=== PATIENT | male | born 1960 | race Caucasian/White ===

== ENCOUNTER 2023-04-27 11:34 | Observation (INO) | payer BC ==
[2023-04-27] VITALS (10 sets, daily range): BP systolic 89–129; BP diastolic 59–103
[~2023-04-27] VITALS: Ht 172.2 cm; Wt 95.0 kg
[2023-04-27 11:59] LABS: BASOPHILS # (AUTO) 0.1 10^3/uL (0.0-0.1); BASOPHILS % (AUTO) 1 % (0-10); EOSINOPHILS # (AUTO) 0.1 10^3/uL (0.0-0.3); EOSINOPHILS % (AUTO) 1 % (0-10); HEMATOCRIT 49 % (40-54); HEMOGLOBIN 16.4 g/dL (13.3-17.7); LYMPHOCYTES % (AUTO) 36 % (12-44); MEAN CORPUSCULAR HEMOGLOBIN 30 pg (25-34); MEAN CORPUSCULAR HGB CONC 34 g/dL (32-36); MEAN CORPUSCULAR VOLUME 88 fL (80-99); MEAN PLATELET VOLUME 10.9 fL (9.0-12.2); MONOCYTES # (AUTO) 0.6 10^3/uL (0.0-1.0); MONOCYTES % (AUTO) 7 % (0-12); NEUTROPHILS # (AUTO) 4.6 10^3/uL (1.8-7.8); NEUTROPHILS % (AUTO) 55 % (42-75); PLATELET COUNT 253 10^3/uL (130-400); WHITE BLOOD COUNT 8.4 10^3/uL (4.3-11.0)
[2023-04-27] MEDS ORDERED: NS IV 1000 ML 1,000 ML IV SCH (12:00)
--- NOTE | 2023-04-27 12:01 | ED Cardiac General ---
History of Present Illness General Chief Complaint: Cardiac/General Problems Stated Complaint: AFIB | Nursing Triage Note: ARRIVED VIA AMB FROM DR SMITH OFFICE IN A NEW ONSET OF AFIB. PT STATES HIS WATCH ALERTED HIM TO AFIB YESTERDAY. ONLY SX IS DIZZINESS. Source: patient Exam Limitations: no limitations History of Present Illness Date Seen by Provider: April 27, 2023 Time Seen by Provider: 11:37 Initial Comments 62-year-old male presents to the ER with reports of elevated heart rate and dizziness starting yesterday. He reports that his smart watch told him he was in atrial fibrillation with a high heart rate. He denies history of atrial fibrillation. He reports he called his doctor about this yesterday and he was seen in the clinic today by the nurse practitioner, the nurse practitioner spoke with the physician who told patient to come to the ER. He reports intermittent dizziness, states that it mostly occurs when he stands up or is walking. States he is not dizzy when he is lying or sitting. He denies blurred vision, palpitations, chest pain, shortness of air, abdominal pain, nausea, vomiting, diarrhea. Allergies and Home Medications Allergies Coded Allergies: No Known Drug Allergies (Unverified , 04/27/23) Patient Home Medication List Home Medication List Reviewed: Yes Review of Systems Review of Systems Constitutional: see HPI Past Zmatzsx-Swttzs-Mptsfm Hx Patient Social History Tobacco Use?: No Substance use?: No Alcohol Use?: Yes Alcohol Frequency: Rarely Physical Exam Vital Signs Vital Signs - First Documented 04/27/23 11:39 Temp 35.4 Pulse 106 Resp 16 B/P (MAP) 129/83 (98) Pulse Ox 96 O2 Delivery Room Air Capillary Refill : Less Than 3 Seconds Height, Weight, BMI Height: '" Weight: lbs. oz. kg; 33.00 BMI Method: General Appearance: No Apparent Distress, WD/WN Neck: Non Tender, Supple Respiratory: Lungs Clear, Normal Breath Sounds, No Accessory Muscle Use, No Respiratory Distress Cardiovascular: Irregularly Irregular Extremity: Normal Inspection, Normal Range of Motion Neurologic/Psychiatric: Alert, Normal Mood/Affect Skin: Normal Color, Warm/Dry Progress/Results/Core Measures Results/Orders Lab Results Laboratory Tests Test 04/27/23 11:43 Range/Units White Blood Count 8.4 4.3-11.0 10^3/uL Red Blood Count 5.52 4.30-5.52 10^6/uL Hemoglobin 16.4 13.3-17.7 g/dL Hematocrit 49 40-54 % Mean Corpuscular Volume 88 80-99 fL Mean Corpuscular Hemoglobin 30 25-34 pg Mean Corpuscular Hemoglobin Concent 34 32-36 g/dL Red Cell Distribution Width 13.0 10.0-14.5 % Platelet Count 253 130-400 10^3/uL Mean Platelet Volume 10.9 9.0-12.2 fL Immature Granulocyte % (Auto) 0 % Neutrophils (%) (Auto) 55 42-75 % Lymphocytes (%) (Auto) 36 12-44 % Monocytes (%) (Auto) 7 0-12 % Eosinophils (%) (Auto) 1 0-10 % Basophils (%) (Auto) 1 0-10 % Neutrophils # (Auto) 4.6 1.8-7.8 10^3/uL Lymphocytes # (Auto) 3.0 1.0-4.0 10^3/uL Monocytes # (Auto) 0.6 0.0-1.0 10^3/uL Eosinophils # (Auto) 0.1 0.0-0.3 10^3/uL Basophils # (Auto) 0.1 0.0-0.1 10^3/uL Immature Granulocyte # (Auto) 0.0 0.0-0.1 10^3/uL Prothrombin Time 13.4 12.2-14.7 SEC INR Comment 1.0 0.8-1.4 Activated Partial Thromboplast Time 30 24-35 SEC Sodium Level 140 135-145 MMOL/L Potassium Level 4.1 3.6-5.0 MMOL/L Chloride Level 105 98-107 MMOL/L Carbon Dioxide Level 23 21-32 MMOL/L Anion Gap 12 5-14 MMOL/L Blood Urea Nitrogen 22 H 7-18 MG/DL Creatinine 1.10 0.60-1.30 MG/DL Estimat Glomerular Filtration Rate 76 BUN/Creatinine Ratio 20 Glucose Level 91 70-105 MG/DL Calcium Level 9.3 8.5-10.1 MG/DL Corrected Calcium 8.9 8.5-10.1 MG/DL Magnesium Level 2.2 1.6-2.4 MG/DL Total Bilirubin 0.7 0.1-1.0 MG/DL Aspartate Amino Transf (AST/SGOT) 30 5-34 U/L Alanine Aminotransferase (ALT/SGPT) 34 0-55 U/L Alkaline Phosphatase 69 40-136 U/L Troponin I < 0.028 <0.028 NG/ML B-Type Natriuretic Peptide 424.9 H <100.0 PG/ML Total Protein 7.9 6.4-8.2 GM/DL Albumin 4.5 3.2-4.5 GM/DL My Orders Orders - INDER BATISTA APRN Cbc With Automated Diff (04/27/23 11:54) Magnesium (04/27/23 11:54) Chest 1 View, Ap/Pa Only (04/27/23 11:54) Comprehensive Metabolic Panel (04/27/23 11:54) Ed Iv/Invasive Line Start (04/27/23 11:54) Ns Iv 1000 Ml (Sodium Chloride 0.9%) (04/27/23 12:00) Apixaban Tablet (Eliquis Tablet) (04/27/23 13:00) Troponin I Tyler (04/27/23 12:58) Bnp Tyler (04/27/23 12:58) Protime With Inr (04/27/23 12:58) Partial Thromboplastin Time (04/27/23 12:58) Ed Admission (Communication) (04/27/23 13:00) Digoxin Tablet (Lanoxin Tablet) (04/27/23 13:30) Medications Given in ED Current Medications Medications Dose Ordered Sig/Rodríguez Route Start Time Stop Time Status Last Admin Dose Admin Apixaban 5 mg ONCE ONCE PO 04/27/23 13:00 04/27/23 13:01 DC 04/27/23 13:34 5 MG Digoxin 0.25 mg ONCE ONCE PO 04/27/23 13:30 04/27/23 13:31 DC 04/27/23 13:38 0.25 MG Vital Signs/I&O 04/27/23 11:39 Temp 35.4 Pulse 106 Resp 16 B/P (MAP) 129/83 (98) Pulse Ox 96 O2 Delivery Room Air Blood Pressure Mean: 98 Progress Progress Note : Progress Note Patient seen and evaluated, resting comfortably in bed, no acute distress. Based on exam and symptoms, work-up initiated including CBC, CMP, magnesium, chest x-ray. IV fluids ordered for hypotension. Labs and x-ray reviewed. CBC grossly normal, CMP grossly normal, BUN slightly elevated 22. Magnesium normal. Chest x-ray shows cardiomegaly with no significant pulmonary vascular congestion. Lungs are clear. I called and spoke with Dr. Bull, cardiology, regarding patient. He recommends admission with 5 mg of Eliquis now and twice daily, digoxin 0.25 mg now and daily, and an echocardiogram. I spoke with Dr. Montana, hospitalist, for admission. She agrees to admit to cardiac stepdown for observation. She would like me to add coags, troponin, and BNP. She will place admission orders. Initial ECG Impression Date: April 27, 2023 Initial ECG Impression Time: 11:42 Initial ECG Rate: 97 Initial ECG Rhythm: A Fib/Flutter Initial ECG Intervals: QRS (Elevated 138) Initial ECG Impression: Atrial Fibrillation Initial ECG Comparisson: No Previous ECG Available Comment Atrial fibrillation right bundle branch block, T wave inversion in lead III, no significant Q waves or ST elevation. Diagnostic Imaging Diagonstic Imaging: Xray Plain Films/CT/US/NM/MRI: chest Comments [facility], [facility]. [place], [place] NAME: VIPUL JACK [facility] REC#: [id number] PT STATUS: REG ER : 1960 PHYSICIAN: INDER BATISTA APRN ADMIT DATE: 04/27/23/ER Draft Date of Exam:04/27/23 CHEST 1 VIEW, AP/PA ONLY CLINICAL INDICATION: Patient with new onset of A. fib. Patient with dizziness. EXAM: Portable chest x-ray upright view. COMPARISON: None. FINDINGS: Lungs/pleura: There is elevation of the left hemidiaphragm. Lungs are clear. There is no pneumothorax. There is no pleural effusion. Mediastinum: Unremarkable. Pulmonary vasculature: Unremarkable. Heart: There is cardiomegaly. Bones/extrathoracic soft tissue: Unremarkable. IMPRESSION: 1: There is cardiomegaly with no significant pulmonary vascular congestion. 2: Lungs are clear. There is elevation of the left hemidiaphragm. Dictated on workstation # [id number] Dict: 04/27/23 1211 Trans: 04/27/23 1219 AS6 [id number] Interpreted by: AUSTIN LAGUNAS MD Electronically signed by: Departure Communication (Admissions) Time/Spoke to Admitting Phy: 12:55 Dr. Neely, hospitalist, see progress note. Time/Spoke to Consulting Phy: 12:48 Dr. Bull, cardiology, see progress note. Impression Primary Impression: Atrial fibrillation Qualified Codes: I48.91 - Unspecified atrial fibrillation Additional Impression: Cardiomegaly Disposition: ADMITTED INPATIENT Condition: Stable Admissions Decision to Admit Reason: Admit from ER (General) Decision to Admit/Date: April 27, 2023 Time/Decision to Admit Time: 12:50 Departure-Patient Inst. Referrals: PARRISH MUSE DO (PCP/Family) Primary Care Physician Copy Copies To 1: PARRISH MUSE BRITTANY R APRN April 27, 2023 12:01
[2023-04-27 12:04] LABS: ALBUMIN 4.5 GM/DL (3.2-4.5); POTASSIUM 4.1 MMOL/L (3.6-5.0)
[2023-04-27 12:05] LABS: CALCIUM 9.3 MG/DL (8.5-10.1)
[2023-04-27 12:07] LABS: TOTAL PROTEIN 7.9 GM/DL (6.4-8.2)
[2023-04-27 12:08] LABS: BILIRUBIN,TOTAL 0.7 MG/DL (0.1-1.0)
[2023-04-27 12:10] LABS: CREATININE SERUM 1.1 MG/DL (0.60-1.30)
[2023-04-27 12:13] LABS: MAGNESIUM 2.2 MG/DL (1.6-2.4)
--- NOTE | 2023-04-27 12:19 | Diagnostic Imaging Report ---
CLINICAL INDICATION: Patient with new onset of A. fib. Patient with dizziness. EXAM: Portable chest x-ray upright view. COMPARISON: None. FINDINGS: Lungs/pleura: There is elevation of the left hemidiaphragm. Lungs are clear. There is no pneumothorax. There is no pleural effusion. Mediastinum: Unremarkable. Pulmonary vasculature: Unremarkable. Heart: There is cardiomegaly. Bones/extrathoracic soft tissue: Unremarkable. IMPRESSION: 1: There is cardiomegaly with no significant pulmonary vascular congestion. 2: Lungs are clear. There is elevation of the left hemidiaphragm. Dictated by: Dictated on workstation # [id number]
[2023-04-27] MEDS ORDERED: APIXABAN 5 MG (ELIQUIS) TABLET PO ONE (13:00)
--- NOTE | 2023-04-27 13:01 | History & Physical ---
History of Present Illness HPI/Chief Complaint Chief complaint: New onset A-fib with rate control but hypotension HPI: This is a 62-year-old male clinic patient of Dr. Ryan who has no past medical history of heart problems who presented to the ER with weakness and dizziness new onset atrial fibrillation but rate controlled. Significant hypotension required IV fluids. No evidence of any sepsis. To note when asked if he has ever had a sleep study he reports that was arranged long ago but it was too difficult to obtain and canceled it and never went back. I did recommend a sleep study due to connection with obstructive sleep apnea and atrial fibrillation. Cardiology has been consulted. Source: patient, family, RN/MD Exam Limitations: no limitations Date Seen 04/27/23 Time Seen by a Provider: 12:00 Attending Physician Maddie Ryan DO PCP Admitting Physician: Attending Physician: Referring Physician Date of Admission Home Medications & Allergies Home Medications Reviewed patient Home Medication Reconciliation performed by pharmacy medication reconciliations perinatal technician and/or nursing. Patients Allergies have been reviewed. Allergies Allergies Coded Allergies No Known Drug Allergies (Unverified04/27/23) Past Kjwqcnl-Dxraak-Kbxoss Hx Past Med/Social Hx: Reviewed Nursing Past Med/Soc Hx, Reviewed and Corrections made Patient Social History Marrital Status: Employed/Student: employed Alcohol Use: Denies Use Smoking Status: Never a Smoker Review of Systems Constitutional: see HPI, dizziness, malaise, weakness Physical Exam Physical Exam Vital Signs Vital Signs - First Documented 04/27/23 04/27/23 04/27/23 11:39 16:16 16:21 Temp 35.4 Pulse 106 Resp 16 B/P (MAP) 129/83 (98) Pulse Ox 96 O2 Delivery Room Air O2 Flow Rate 0.00 FiO2 21 Capillary Refill : Less Than 3 Seconds Height, Weight, BMI Height: '" Weight: lbs. oz. kg; 33.00 BMI Method: General Appearance: No Apparent Distress, WD/WN Neck: Non Tender, Supple Respiratory: Lungs Clear, Normal Breath Sounds, No Accessory Muscle Use, No Respiratory Distress Cardiovascular: Irregularly Irregular Extremity: Normal Inspection, Normal Range of Motion Neurologic/Psychiatric: Alert, Normal Mood/Affect Skin: Normal Color, Warm/Dry Results Results/Procedures Labs Laboratory Tests 04/27/23 11:43 Patient resulted labs reviewed. Assessment/Plan Admission Diagnosis Assessment: New onset atrial fibrillation rate controlled Suspected AUTUMN Hypotension requiring IV fluids Plan: Eliquis Digoxin Echocardiogram Cardiology consult appreciated Admission Status: Observation MARILYN YO DO April 27, 2023 13:01
[2023-04-27 13:09] LABS: PROTHROMBIN TIME PATIENT 13.4 SEC (12.2-14.7)
[2023-04-27] MEDS ORDERED: DIGOXIN 0.25 MG (LANOXIN) TAB PO ONE (13:30)
--- NOTE | 2023-04-27 14:20 | Consultation-Cardiology ---
HPI-Cardiology Cardiology Consultation: Date of Consultation 04/27/23 Time Seen by a Provider: 14:20 Date of Admission 04-27-23 Attending Physician Maddie Ryan DO Admitting Physician Admitting Physician: Attending Physician: Consulting Physician Fabiola Bull MD HPI: Chief Complaint: Newly dx a-fib Mr. Jack is a 62 yr old male being admitted to 507 from the ED with newly dx a-fib. He has been seen in the ED at this time. He reports yesterday morning he woke up from sleep at his usual time and felt lightheaded and dizzy. He reports it did not persist for long and he went to work without any further problems. He reports he got home from work and laid down when his Apple Watch alerted him that he was in a-fib (new finding). He states he felt dizzy at that time and called Dr. Ryan's office this morning for an appt. He states he saw her office this morning and they sent him to the ED. He denies any palpitations, CP, syncope, near syncope or LE swelling. He denies any further dizziness today. He denies taking any medications at home. His spouse is at the bedside and reports he has periods of apnea when sleeping and significant snoring. She reports she believes he has sleep apnea. Review of Systems-Cardiology Review of Systems Constitutional: No chills, No fever; lightheadedness Eyes: No vision change Ears/Nose/Throat: No epistaxis, No recent hearing loss Respiratory: As described under HPI Cardiovascular: As described under HPI Gastrointestinal: No constipation, No diarrhea, No nausea, No vomiting Genitourinary: No dysuria, No hematuria Musculoskeletal: no symptoms reported Skin: No rash on exposed areas, No ulcerations on exposed areas Psychiatric/Neurological: No anxiety, No depression, No seizure, No focal weakness, No syncope Hematologic: No bleeding abnormalities ZSZ-Neffbr-Jjmpsq Hx Patient Social History Have you traveled recently?: No Alcohol Use?: Yes Past Medical History PMH As described under Assessment. Family Medical History Family Medical History: He reports he has a sister who had a CVA at age 45. Otherwise, no reported family CAD. Allergies and Home Medications Allergies Coded Allergies: No Known Drug Allergies (Unverified , 04/27/23) Physical Exam-Cardiology Physical Exam Vital Signs/I&O 04/27/23 04/28/23 04/28/23 04/28/23 23:52 01:00 03:33 04:06 Temp 36.5 36.4 Pulse 73 70 68 Resp 12 16 B/P (MAP) 90/65 (73) 81/69 (73) 85/57 (66) Pulse Ox 99 99 O2 Delivery Room Air Room Air 04/28/23 04/28/23 07:12 08:00 Temp 36.3 Pulse 76 74 Resp 16 B/P (MAP) 106/72 (83) Pulse Ox 97 O2 Delivery Room Air 04/28/23 00:00 Intake Total 2400 ml Output Total 650 ml Balance 1750 ml Capillary Refill : Less Than 3 Seconds Constitutional: AAO x 3, well-developed, well-nourished HEENT: PERRL, hearing is well preserved, oral hygience is good Neck: No carotid bruit; carotid pulses are 2 + bilaterally Respiratory: No accessory muscle use, No respiratory distress; chest expansion is symmetric, chest is bilaterally symmetric, lungs clear to auscultation Cardiovascular: irregularly irregular; No JVD; S1 and S2 Gastrointestinal: No tender; soft, round; No guarding; audible bowel sounds Extremities: no lower extremity edema bilateral Neurologic/Psychiatric: grossly intact (moves all extremities) Skin: No rash on exposed areas, No ulcerations on exposed areas Data Review Labs Laboratory Tests 04/27/23 11:43: White Blood Count 8.4, Red Blood Count 5.52, Hemoglobin 16.4, Hematocrit 49, Mean Corpuscular Volume 88, Mean Corpuscular Hemoglobin 30, Mean Corpuscular Hemoglobin Concent 34, Red Cell Distribution Width 13.0, Platelet Count 253, Mean Platelet Volume 10.9, Immature Granulocyte % (Auto) 0, Neutrophils (%) (Auto) 55, Lymphocytes (%) (Auto) 36, Monocytes (%) (Auto) 7, Eosinophils (%) (Auto) 1, Basophils (%) (Auto) 1, Neutrophils # (Auto) 4.6, Lymphocytes # (Auto) 3.0, Monocytes # (Auto) 0.6, Eosinophils # (Auto) 0.1, Basophils # (Auto) 0.1, Immature Granulocyte # (Auto) 0.0, Prothrombin Time 13.4, INR Comment 1.0, Activated Partial Thromboplast Time 30, Sodium Level 140, Potassium Level 4.1, Chloride Level 105, Carbon Dioxide Level 23, Anion Gap 12, Blood Urea Nitrogen 22H, Creatinine 1.10, Estimat Glomerular Filtration Rate 76, BUN/Creatinine Ratio 20, Glucose Level 91, Calcium Level 9.3, Corrected Calcium 8.9, Magnesium Level 2.2, Total Bilirubin 0.7, Aspartate Amino Transf (AST/SGOT) 30, Alanine Aminotransferase (ALT/SGPT) 34, Alkaline Phosphatase 69, Troponin I < 0.028, B- Type Natriuretic Peptide 424.9H, Total Protein 7.9, Albumin 4.5 04/27/23 15:04: Thyroid Stimulating Hormone (TSH) 3.08 04/28/23 04:37: White Blood Count 6.6, Red Blood Count 4.67, Hemoglobin 13.9, Hematocrit 41, Mean Corpuscular Volume 88, Mean Corpuscular Hemoglobin 30, Mean Corpuscular Hemoglobin Concent 34, Red Cell Distribution Width 13.1, Platelet Count 219, Mean Platelet Volume 11.4, Immature Granulocyte % (Auto) 0, Neutrophils (%) (Auto) 51, Lymphocytes (%) (Auto) 39, Monocytes (%) (Auto) 7, Eosinophils (%) (Auto) 2, Basophils (%) (Auto) 1, Neutrophils # (Auto) 3.4, Lymphocytes # (Auto) 2.5, Monocytes # (Auto) 0.5, Eosinophils # (Auto) 0.2, Basophils # (Auto) 0.0, Immature Granulocyte # (Auto) 0.0, Sodium Level 139, Potassium Level 4.1, Chloride Level 110H, Carbon Dioxide Level 24, Anion Gap 5, Blood Urea Nitrogen 19H, Creatinine 1.08, Estimat Glomerular Filtration Rate 78, BUN/Creatinine Ratio 18, Glucose Level 95, Calcium Level 8.3L, Corrected Calcium 8.7, Total Bilirubin 0.4, Aspartate Amino Transf (AST/SGOT) 21, Alanine Aminotransferase (ALT/SGPT) 25, Alkaline Phosphatase 48, Total Protein 6.0L, Albumin 3.5 Radiology NAME: VIPUL JACK [facility] REC#: [id number] PT STATUS: REG ER : 1960 PHYSICIAN: INDER BATISTA APRN ADMIT DATE: 04/27/23/ER Draft Date of Exam:04/27/23 CHEST 1 VIEW, AP/PA ONLY CLINICAL INDICATION: Patient with new onset of A. fib. Patient with dizziness. EXAM: Portable chest x-ray upright view. COMPARISON: None. FINDINGS: Lungs/pleura: There is elevation of the left hemidiaphragm. Lungs are clear. There is no pneumothorax. There is no pleural effusion. Mediastinum: Unremarkable. Pulmonary vasculature: Unremarkable. Heart: There is cardiomegaly. Bones/extrathoracic soft tissue: Unremarkable. IMPRESSION: 1: There is cardiomegaly with no significant pulmonary vascular congestion. 2: Lungs are clear. There is elevation of the left hemidiaphragm. Dictated on workstation # [id number] Dict: 04/27/23 1211 Trans: 04/27/23 1219 AS6 [id number] Interpreted by: AUSTIN LAGUNAS MD Electronically signed by: ECG Impression ECG Initial ECG Rhythm: A Fib/Flutter A/P-Cardiology Assessment/Admission Diagnosis Newly dx a-fib/flutter - EKG at [facility] on 04-27-23 - start OAC with Eliquis for stroke prophylaxis Suspected sleep apnea - advise out pt sleep studies Discussion and Recomendations Newly dx a-fib/flutter - HR ranging 80's - 140's - start Cardizem CD 120mg daily - start Eliquis 5mg BID - advise echocardiogram to eval structure and function Advise out pt sleep studies to eval for sleep apnea Monitor lab Replace electrolytes as indicated Further recs will be based on his hospital course We would like to thank medical services for this consult CHAPO MATOS April 27, 2023 14:20
[2023-04-27] MEDS ORDERED: dilTIAZem120 MG (CARDIZEM CD) CAP PO NR (15:10)
[2023-04-27] MEDS ORDERED: diphenhydrAMINE 50 MG/ML INJ (BENADRYL) IVP PRN (15:45)
[2023-04-27] MEDS ORDERED: polyethylene glycoL POWDER 17 GM (MIRALAX) PACK PO PRN (15:45)
[2023-04-27] MEDS ORDERED: ACETAMINOPHEN 325 MG TABLET PO PRN (15:45)
[2023-04-27] MEDS ORDERED: morphine INJ 4 MG/ML 1 ML (VIAL/SYRINGE) IV PRN (15:45)
[2023-04-27] MEDS ORDERED: MILK OF MAGNESIA 400 MG/5 ML 30 ML UDC PO PRN (15:45)
[2023-04-27] MEDS ORDERED: ONDANSETRON 4 MG (ZOFRAN) ORAL DISSOLVE TAB PO PRN (15:45)
[2023-04-27] MEDS ORDERED: BISACODYL 10 MG SUPP (DULCOLAX) PR PRN (15:45)
[2023-04-27] MEDS ORDERED: CALCIUM CARBONATE 500 MG (TUMS) TAB.CHEW PO PRN (15:45)
[2023-04-27] MEDS ORDERED: ONDANSETRON 4 MG/2 ML (SDV) Z0FRAN IV PRN (15:45)
[2023-04-27] MEDS ORDERED: LACTULOSE SYRUP 10GM/15ML (ENULOSE) 30ML UDC PO PRN (15:45)
[2023-04-27] MEDS ORDERED: MELATONIN 3 MG TABLET PO PRN (15:45)
[2023-04-27] MEDS ORDERED: ANTACID SUSP 30 ML UDC (MYLANTA) PO PRN (15:45)
[2023-04-27] MEDS ORDERED: diphenhydrAMINE 25 MG TAB (BENADRYL) PO PRN (15:45)
[2023-04-27] MEDS ORDERED: NS IV 1000 ML 1,000 ML ONE (15:53)
[2023-04-27] MEDS: NS IV 1000 ML 1,000 ML IV SCH ×2 (16:01→23:54)
[2023-04-27] MEDS ORDERED: RT-ALBUTEROL SULF 2.5 MG/3 ML PRE-MIX VIAL INH PRN (16:30)
[2023-04-27] MEDS ORDERED: DIGOXIN 0.25 MG/ML (LANOXIN) 2 ML AMP IV ONE (19:00)
--- NOTE | 2023-04-27 19:01 | Consultation-Cardiology ---
HPI-Cardiology Cardiology Consultation: Date of Consultation 04/27/23 Time Seen by a Provider: 18:40 Date of Admission Attending Physician Maddie Ryan DO Admitting Physician Admitting Physician: Diane Neely DO Attending Physician: Diane Neely DO Consulting Physician SPENCER MOHAMUD MD, MA, FACP, FACC, [facility] [place], CCDS Physician requesting consult: Dr Neely HPI: Chief Complaint: Reason for Card consult: Newly dx a-fib Mr. Mcpherson is a 62 yr old male being admitted to [facility] from the ED with newly dx a-fib. He has been seen in the ED at this time. He reports yesterday morning he woke up from sleep at his usual time and felt lightheaded and dizzy. He reports it did not persist for long and he went to work without any further problems. He reports he got home from work and laid down when his Apple Watch alerted him that he was in a-fib (new finding). He states he felt dizzy at that time and called Dr. Ryan's office this morning for an appt. He states he saw her office this morning and they sent him to the ED. He denies any palpitations, CP, syncope, near syncope or LE swelling. He denies any further dizziness today. He denies taking any medications at home. His spouse is at the bedside and reports he has periods of apnea when sleeping and significant snoring. She reports she believes he has sleep apnea. Review of Systems-Cardiology Review of Systems Constitutional: No chills, No fever; lightheadedness Eyes: No vision change Ears/Nose/Throat: No epistaxis, No recent hearing loss Respiratory: As described under HPI Cardiovascular: As described under HPI Gastrointestinal: No constipation, No diarrhea, No nausea, No vomiting Genitourinary: No dysuria, No hematuria Musculoskeletal: no symptoms reported Skin: No rash on exposed areas, No ulcerations on exposed areas Psychiatric/Neurological: No anxiety, No depression, No seizure, No focal weakness, No syncope Hematologic: No bleeding abnormalities CAD-Ymmlvl-Hpxxce Hx Patient Social History Smoking Status: Never a Smoker Have you traveled recently?: No Alcohol Use?: Yes Pt feels they are or have been: No Past Medical History PMH As described under Assessment. Family Medical History Family Medical History: He reports he has a sister who had a CVA at age 45. Otherwise, no reported family CAD. Allergies and Home Medications Allergies Coded Allergies: No Known Drug Allergies (Unverified , 04/27/23) Patient Home Medication List Home Medication List Reviewed: Yes Physical Exam-Cardiology Physical Exam Vital Signs/I&O 04/27/23 04/27/23 04/27/23 04/27/23 11:39 15:28 15:30 15:45 Temp 35.4 Pulse 106 111 118 94 Resp 16 14 12 12 B/P (MAP) 129/83 (98) 108/84 124/103 (110) 103/87 (92) Pulse Ox 96 98 98 98 O2 Delivery Room Air Room Air Room Air Room Air 04/27/23 04/27/23 04/27/23 04/27/23 15:45 15:51 16:00 16:15 Pulse 133 141 134 Resp 28 11 B/P (MAP) 115/95 (102) 124/102 (109) Pulse Ox 96 98 O2 Delivery Room Air Room Air Room Air 04/27/23 04/27/23 04/27/23 04/27/23 16:16 16:21 16:30 16:45 Temp 35.4 Pulse 106 126 128 Resp 12 9 B/P (MAP) 109/98 (102) 90/76 (81) Pulse Ox 96 96 100 96 O2 Delivery Room Air Room Air Room Air O2 Flow Rate 0.00 FiO2 21 04/27/23 17:00 Pulse 129 Resp 26 B/P (MAP) 89/59 (69) Pulse Ox 97 O2 Delivery Room Air Capillary Refill : Less Than 3 Seconds Constitutional: AAO x 3, well-developed, well-nourished HEENT: PERRL, hearing is well preserved, oral hygience is good Neck: No carotid bruit; carotid pulses are 2 + bilaterally Respiratory: No accessory muscle use, No respiratory distress; chest expansion is symmetric, chest is bilaterally symmetric, lungs clear to auscultation Cardiovascular: irregularly irregular; No JVD; S1 and S2 Gastrointestinal: No tender; soft, round; No guarding; audible bowel sounds Extremities: no lower extremity edema bilateral Neurologic/Psychiatric: grossly intact (moves all extremities) Skin: No rash on exposed areas, No ulcerations on exposed areas Data Review Labs Laboratory Tests 04/27/23 11:43: White Blood Count 8.4, Red Blood Count 5.52, Hemoglobin 16.4, Hematocrit 49, Mean Corpuscular Volume 88, Mean Corpuscular Hemoglobin 30, Mean Corpuscular Hemoglobin Concent 34, Red Cell Distribution Width 13.0, Platelet Count 253, Mean Platelet Volume 10.9, Immature Granulocyte % (Auto) 0, Neutrophils (%) (Auto) 55, Lymphocytes (%) (Auto) 36, Monocytes (%) (Auto) 7, Eosinophils (%) (Auto) 1, Basophils (%) (Auto) 1, Neutrophils # (Auto) 4.6, Lymphocytes # (Auto) 3.0, Monocytes # (Auto) 0.6, Eosinophils # (Auto) 0.1, Basophils # (Auto) 0.1, Immature Granulocyte # (Auto) 0.0, Prothrombin Time 13.4, INR Comment 1.0, Activated Partial Thromboplast Time 30, Sodium Level 140, Potassium Level 4.1, Chloride Level 105, Carbon Dioxide Level 23, Anion Gap 12, Blood Urea Nitrogen 22H, Creatinine 1.10, Estimat Glomerular Filtration Rate 76, BUN/Creatinine Ratio 20, Glucose Level 91, Calcium Level 9.3, Corrected Calcium 8.9, Magnesium Level 2.2, Total Bilirubin 0.7, Aspartate Amino Transf (AST/SGOT) 30, Alanine Aminotransferase (ALT/SGPT) 34, Alkaline Phosphatase 69, Troponin I < 0.028, B- Type Natriuretic Peptide 424.9H, Total Protein 7.9, Albumin 4.5 04/27/23 15:04: Thyroid Stimulating Hormone (TSH) 3.08 A/P-Cardiology Assessment/Admission Diagnosis Newly dx a-fib/flutter - EKG at [facility] on 04-27-23 - start OAC with Eliquis for stroke prophylaxis Suspected sleep apnea - advise out pt sleep studies Discussion and Recomendations Newly dx a-fib/flutter - HR ranging 80's - 140's - dilt and dig for vent rate control - start Eliquis 5mg BID - advise echocardiogram to eval structure and function Advise out pt sleep studies to eval for sleep apnea Monitor lab Replace electrolytes as indicated Further recs will be based on his hospital course We would like to thank Medical services for this consult SPENCER MOHAMUD MD [facility] CCDS April 27, 2023 19:01
[2023-04-27] MEDS: DOCUSATE SODIUM 100 MG (COLACE) CAP PO SCH (20:04)
[2023-04-27] MEDS: SENNOSIDES 8.6 MG (SENOKOT) TAB PO SCH (20:04)
[2023-04-27] MEDS: APIXABAN 5 MG (ELIQUIS) TABLET PO SCH (20:04)
[2023-04-28] VITALS (8 sets, daily range): BP systolic 81–109; BP diastolic 57–83
[2023-04-28 05:08] LABS: BASOPHILS % (AUTO) 1 % (0-10); EOSINOPHILS # (AUTO) 0.2 10^3/uL (0.0-0.3); EOSINOPHILS % (AUTO) 2 % (0-10); HEMATOCRIT 41 % (40-54); HEMOGLOBIN 13.9 g/dL (13.3-17.7); LYMPHOCYTES # (AUTO) 2.5 10^3/uL (1.0-4.0); LYMPHOCYTES % (AUTO) 39 % (12-44); MEAN CORPUSCULAR HEMOGLOBIN 30 pg (25-34); MEAN CORPUSCULAR HGB CONC 34 g/dL (32-36); MEAN CORPUSCULAR VOLUME 88 fL (80-99); MEAN PLATELET VOLUME 11.4 fL (9.0-12.2); MONOCYTES # (AUTO) 0.5 10^3/uL (0.0-1.0); MONOCYTES % (AUTO) 7 % (0-12); NEUTROPHILS # (AUTO) 3.4 10^3/uL (1.8-7.8); NEUTROPHILS % (AUTO) 51 % (42-75); PLATELET COUNT 219 10^3/uL (130-400); WHITE BLOOD COUNT 6.6 10^3/uL (4.3-11.0)
[2023-04-28 05:25] LABS: ALBUMIN 3.5 GM/DL (3.2-4.5); POTASSIUM 4.1 MMOL/L (3.6-5.0)
[2023-04-28 05:27] LABS: CALCIUM 8.3 MG/DL (8.5-10.1)
[2023-04-28 05:29] LABS: BILIRUBIN,TOTAL 0.4 MG/DL (0.1-1.0)
[2023-04-28 05:31] LABS: CREATININE SERUM 1.08 MG/DL (0.60-1.30)
[2023-04-28] MEDS: NS IV 1000 ML 1,000 ML IV SCH (07:50)
[2023-04-28] MEDS: APIXABAN 5 MG (ELIQUIS) TABLET PO SCH (08:33)
[2023-04-28] MEDS: SENNOSIDES 8.6 MG (SENOKOT) TAB PO SCH (08:34)
[2023-04-28] MEDS: DOCUSATE SODIUM 100 MG (COLACE) CAP PO SCH (08:34)
[2023-04-28] MEDS ORDERED: dilTIAZem120 MG (CARDIZEM CD) CAP PO SCH (09:00)
[2023-04-28] MEDS ORDERED: DIGOXIN 0.25 MG (LANOXIN) TAB PO SCH ×2 (09:00)
--- NOTE | 2023-04-28 09:12 | Progress Note - Cardiology ---
Cardiology SOAP Progress Note Subjective: Sitting up in bed Spouse at the bedside No c/o CP, SOB, dizziness or palpitations States he feels good this morning Objective: I&O/Vital Signs Constitutional: AAO x 3, well-developed, well-nourished Respiratory: No accessory muscle use, No respiratory distress; chest expansion is symmetric, chest is bilaterally symmetric, lungs clear to auscultation Cardiovascular: irregularly irregular; No JVD; S1 and S2 Gastrointestional: No tender; soft, round; No guarding; audible bowel sounds Extremities: no lower extremity edema bilateral Neurologic/Psychiatric: grossly intact (moves all extremities) Skin: No rash on exposed areas, No ulcerations on exposed areas Results/Procedures: Labs A/P: Assessment: Newly dx a-fib/flutter - EKG at [facility] on 04-27-23 - start OAC with Eliquis for stroke prophylaxis Somewhat low BP - asymptomatic Suspected sleep apnea - advise out pt sleep studies Plan: Newly dx a-fib/flutter - HR improved with increased dose of Cardizem and addition of Dig - continue Eliquis 5mg BID Advise out pt sleep studies to eval for sleep apnea BP somewhat low - albeit asymptomatic Ambulate in the halls today Monitor lab Replace electrolytes as indicated CHAPO MATOS Apr 28, 2023 09:12
[2023-04-28] MEDS ORDERED: MAGN250T13 PO (09:40)
[2023-04-28] MEDS ORDERED: APIX5TAB PO (14:54)
[2023-04-28] MEDS ORDERED: DILT240C91 PO (14:54)
[2023-04-28] MEDS ORDERED: DIGO250T15 PO (14:54)
[2023-04-28] MEDS ORDERED: DILT120C82 PO (15:04)
[2023-04-28] MEDS ORDERED: DIGO250T3 PO (15:06)
--- NOTE | 2023-04-28 15:49 | Discharge Summary ---
Diagnosis/Chief Complaint Date of Admission April 27, 2023 at 15:31 Date of Discharge Discharge Date: Apr 28, 2023 Discharge Diagnosis New onset atrial fibrillation Suspected ATUUMN Discharge Summary Discharge Physical Examination Allergies: Coded Allergies: No Known Drug Allergies (Unverified , 04/27/23) Vitals & I&Os Vital Signs Date Time Temp Pulse Resp B/P (MAP) Pulse Ox O2 Delivery O2 Flow Rate FiO2 04/28/23 16:12 36.1 65 14 109/83 100 Room Air 0.00 04/27/23 16:16 21 General Appearance: Alert, Oriented X3, Cooperative Respiratory: Clear to Auscultation Cardiovascular: Regular Rate Psych/Mental Status: Mental Status NL Hospital Course Was the Problem List Reviewed?: Yes Hospital course: Patient had an uneventful hospital course after he was admitted for new onset atrial fibrillation with mild hypotension. Patient was given cardiac medications with good control of heart rate and placed on anticoagulation for stroke prophylaxis. Overall patient did well but suspected AUTUMN will require sleep study. Labs (last 24 hrs) Laboratory Tests 04/27/23 11:43: White Blood Count 8.4, Red Blood Count 5.52, Hemoglobin 16.4, Hematocrit 49, Mean Corpuscular Volume 88, Mean Corpuscular Hemoglobin 30, Mean Corpuscular Hemoglobin Concent 34, Red Cell Distribution Width 13.0, Platelet Count 253, Mean Platelet Volume 10.9, Immature Granulocyte % (Auto) 0, Neutrophils (%) (Auto) 55, Lymphocytes (%) (Auto) 36, Monocytes (%) (Auto) 7, Eosinophils (%) (Auto) 1, Basophils (%) (Auto) 1, Neutrophils # (Auto) 4.6, Lymphocytes # (Auto) 3.0, Monocytes # (Auto) 0.6, Eosinophils # (Auto) 0.1, Basophils # (Auto) 0.1, Immature Granulocyte # (Auto) 0.0, Prothrombin Time 13.4, INR Comment 1.0, Activated Partial Thromboplast Time 30, Sodium Level 140, Potassium Level 4.1, Chloride Level 105, Carbon Dioxide Level 23, Anion Gap 12, Blood Urea Nitrogen 22H, Creatinine 1.10, Estimat Glomerular Filtration Rate 76, BUN/Creatinine Ratio 20, Glucose Level 91, Calcium Level 9.3, Corrected Calcium 8.9, Magnesium Level 2.2, Total Bilirubin 0.7, Aspartate Amino Transf (AST/SGOT) 30, Alanine Aminotransferase (ALT/SGPT) 34, Alkaline Phosphatase 69, Troponin I < 0.028, B- Type Natriuretic Peptide 424.9H, Total Protein 7.9, Albumin 4.5 04/27/23 15:04: Thyroid Stimulating Hormone (TSH) 3.08 04/28/23 04:37: White Blood Count 6.6, Red Blood Count 4.67, Hemoglobin 13.9, Hematocrit 41, Mean Corpuscular Volume 88, Mean Corpuscular Hemoglobin 30, Mean Corpuscular Hemoglobin Concent 34, Red Cell Distribution Width 13.1, Platelet Count 219, M ubaldo Platelet Volume 11.4, Immature Granulocyte % (Auto) 0, Neutrophils (%) (Auto) 51, Lymphocytes (%) (Auto) 39, Monocytes (%) (Auto) 7, Eosinophils (%) (Auto) 2, Basophils (%) (Auto) 1, Neutrophils # (Auto) 3.4, Lymphocytes # (Auto) 2.5, Monocytes # (Auto) 0.5, Eosinophils # (Auto) 0.2, Basophils # (Auto) 0.0, Immature Granulocyte # (Auto) 0.0, Sodium Level 139, Potassium Level 4.1, Chloride Level 110H, Carbon Dioxide Level 24, Anion Gap 5, Blood Urea Nitrogen 19H, Creatinine 1.08, Estimat Glomerular Filtration Rate 78, BUN/Creatinine Ratio 18, Glucose Level 95, Calcium Level 8.3L, Corrected Calcium 8.7, Total Bilirubin 0.4, Aspartate Amino Transf (AST/SGOT) 21, Alanine Aminotransferase (ALT/SGPT) 25, Alkaline Phosphatase 48, Total Protein 6.0L, Albumin 3.5 Pending Labs Laboratory Tests 04/27/23 11:43: White Blood Count 8.4, Red Blood Count 5.52, Hemoglobin 16.4, Hematocrit 49, Mean Corpuscular Volume 88, Mean Corpuscular Hemoglobin 30, Mean Corpuscular Hemoglobin Concent 34, Red Cell Distribution Width 13.0, Platelet Count 253, Mean Platelet Volume 10.9, Immature Granulocyte % (Auto) 0, Neutrophils (%) (Auto) 55, Lymphocytes (%) (Auto) 36, Monocytes (%) (Auto) 7, Eosinophils (%) (Auto) 1, Basophils (%) (Auto) 1, Neutrophils # (Auto) 4.6, Lymphocytes # (Auto) 3.0, Monocytes # (Auto) 0.6, Eosinophils # (Auto) 0.1, Basophils # (Auto) 0.1, Immature Granulocyte # (Auto) 0.0, Prothrombin Time 13.4, INR Comment 1.0, Activated Partial Thromboplast Time 30, Sodium Level 140, Potassium Level 4.1, Chloride Level 105, Carbon Dioxide Level 23, Anion Gap 12, Blood Urea Nitrogen 22, Creatinine 1.10, Estimat Glomerular Filtration Rate 76, BUN/Creatinine Ratio 20, Glucose Level 91, Calcium Level 9.3, Corrected Calcium 8.9, Magnesium Level 2.2, Total Bilirubin 0.7, Aspartate Amino Transf (AST/SGOT) 30, Alanine Aminotransferase (ALT/SGPT) 34, Alkaline Phosphatase 69, Troponin I < 0.028, B- Type Natriuretic Peptide 424.9, Total Protein 7.9, Albumin 4.5 04/27/23 15:04: Thyroid Stimulating Hormone (TSH) 3.08 04/28/23 04:37: White Blood Count 6.6, Red Blood Count 4.67, Hemoglobin 13.9, Hematocrit 41, Mean Corpuscular Volume 88, Mean Corpuscular Hemoglobin 30, Mean Corpuscular Hemoglobin Concent 34, Red Cell Distribution Width 13.1, Platelet Count 219, Mean Platelet Volume 11.4, Immature Granulocyte % (Auto) 0, Neutrophils (%) (Auto) 51, Lymphocytes (%) (Auto) 39, Monocytes (%) (Auto) 7, Eosinophils (%) (Auto) 2, Basophils (%) (Auto) 1, Neutrophils # (Auto) 3.4, Lymphocytes # (Auto) 2.5, Monocytes # (Auto) 0.5, Eosinophils # (Auto) 0.2, Basophils # (Auto) 0.0, Immature Granulocyte # (Auto) 0.0, Sodium Level 139, Potassium Level 4.1, Chloride Level 110, Carbon Dioxide Level 24, Anion Gap 5, Blood Urea Nitrogen 19, Creatinine 1.08, Estimat Glomerular Filtration Rate 78, BUN/Creatinine Ratio 18, Glucose Level 95, Calcium Level 8.3, Corrected Calcium 8.7, Total Bilirubin 0.4, Aspartate Amino Transf (AST/SGOT) 21, Alanine Aminotransferase (ALT/SGPT) 25, Alkaline Phosphatase 48, Total Protein 6.0, Albumin 3.5 Discharge Home Medications: Active Scripts Active Digoxin 250 Mcg (0.25 Mg) Tablet 250 Mcg PO DAILY Cardizem Cd (Diltiazem HCl) 120 Mg Cap.er.24h 120 Mg PO DAILY Eliquis (Apixaban) 5 Mg Tablet 5 Mg PO BID 340 B Program Reported Magnesium (Magnesium Oxide) 250 Mg Tablet 250 Mg PO HS Instructions to patient/family Please see electronic discharge instructions given to patient. MARILYN YO DO Apr 28, 2023 15:49
--- NOTE | 2023-04-28 17:50 | Progress Note - Cardiology ---
Cardiology SOAP Progress Note Subjective: No cp or palp or syncope No shortness of breath No n/v/d No focal weakness Wishes to go home Objective: I&O/Vital Signs 04/28/23 04/28/23 04/28/23 04/28/23 07:12 08:00 08:00 12:00 Temp 36.3 36.1 Pulse 76 74 66 Resp 16 12 B/P (MAP) 106/72 (83) 85/68 (74) Pulse Ox 97 100 O2 Delivery Room Air Room Air Room Air 04/28/23 04/28/23 04/28/23 04/28/23 12:47 14:00 14:41 16:00 Pulse 50 62 82 65 Resp 18 18 B/P (MAP) 91/69 (76) 109/83 (92) Pulse Ox 97 97 O2 Delivery Room Air Room Air 04/28/23 04/28/23 16:09 16:12 Temp 36.1 Pulse 65 65 Resp 14 14 B/P (MAP) 109/83 (92) 109/83 Pulse Ox 100 100 O2 Delivery Room Air Room Air O2 Flow Rate 0.00 04/28/23 00:00 Intake Total 2400 ml Output Total 650 ml Balance 1750 ml Constitutional: AAO x 3, well-developed, well-nourished Respiratory: No accessory muscle use, No respiratory distress; chest expansion is symmetric, chest is bilaterally symmetric, lungs clear to auscultation Cardiovascular: irregularly irregular; No JVD; S1 and S2 Gastrointestional: No tender; soft, round; No guarding; audible bowel sounds Extremities: no lower extremity edema bilateral Neurologic/Psychiatric: other (moves all limbs equally) Skin: No rash on exposed areas, No ulcerations on exposed areas Results/Procedures: Labs Laboratory Tests 04/28/23 04:37: White Blood Count 6.6, Red Blood Count 4.67, Hemoglobin 13.9, Hematocrit 41, Mean Corpuscular Volume 88, Mean Corpuscular Hemoglobin 30, Mean Corpuscular Hemoglobin Concent 34, Red Cell Distribution Width 13.1, Platelet Count 219, Mean Platelet Volume 11.4, Immature Granulocyte % (Auto) 0, Neutrophils (%) (Auto) 51, Lymphocytes (%) (Auto) 39, Monocytes (%) (Auto) 7, Eosinophils (%) (Auto) 2, Basophils (%) (Auto) 1, Neutrophils # (Auto) 3.4, Lymphocytes # (Auto) 2.5, Monocytes # (Auto) 0.5, Eosinophils # (Auto) 0.2, Basophils # (Auto) 0.0, Immature Granulocyte # (Auto) 0.0, Sodium Level 139, Potassium Level 4.1, Chloride Level 110H, Carbon Dioxide Level 24, Anion Gap 5, Blood Urea Nitrogen 19H, Creatinine 1.08, Estimat Glomerular Filtration Rate 78, BUN/Creatinine Ratio 18, Glucose Level 95, Calcium Level 8.3L, Corrected Calcium 8.7, Total Bilirubin 0.4, Aspartate Amino Transf (AST/SGOT) 21, Alanine Aminotransferase (ALT/SGPT) 25, Alkaline Phosphatase 48, Total Protein 6.0L, Albumin 3.5 Laboratory Tests 04/27/23 11:43 04/28/23 04:37 A/P: Assessment: Newly dx a-fib/flutter - EKG at [facility] on 04-27-23 - start OAC with Eliquis for stroke prophylaxis Somewhat low BP - asymptomatic Suspected sleep apnea - advise out pt sleep studies Plan: * Continue dig * Reduce dilt because heart rate is controlled and SBP is low normal (w/o symptoms) * Continue Eliquis * Advised studies for sleep apnea * Outpt f/u SPENCER MOHAMUD MD [facility] CCDS Apr 28, 2023 17:50
== END 2023-04-28 16:50 | disposition home or self-care (01) ==
LOC: ER 11:37 → CSD 15:31 → UNDOADMOB 15:31 → CSD 16:28 → UNDODISOB 04-28 16:50
PROVIDERS: ADMIT Internal Medicine; ATTEND Internal Medicine
DX: I48.91 Unspecified atrial fibrillation (principal); I95.9 Hypotension, unspecified; I51.7 Cardiomegaly
CPT/HCPCS: 71045; 80053 ×2; 83735; 83880; 84443; 84484; 85025 ×2; 85610; 85730; 93005; 96361 ×2; 96375; 99284; C8929; G0378; 36415; 93306

== ENCOUNTER → 2023-08-26 | Outpatient (CLI) | payer BC ==
[~2023-08-26] VITALS: Ht 172 cm; Wt 91.0 kg
[~2023-08-26] MED LIST: APIX5TAB PO; CATHETER FLUSH 10 ML SYR IVP PRN; DIGO250T15 PO; DIGO250T3 PO; DILT120C82 PO; DILT240C91 PO; MAGN250T13 PO; REGADENOSON 0.4 MG/5 ML SYR IV ONE
[2023-08-26 08:50] VITALS: BP 147/86
--- NOTE | 2023-08-30 20:21 | STRESS TEST ---
DATE OF SERVICE: 08/26/2023 RESTING AND POST REGADENOSON TECHNETIUM-99M TETROFOSMIN SPECT CT IMAGING ORDERING PHYSICIAN: Keila Celis APRN. PRIMARY PHYSICIAN: Dr. Ryan. CLINICAL DIAGNOSIS: Atrial fibrillation. Baseline images were carried out after injection of 10.64 mCi of technetium-99m tetrofosmin. This was followed by 0.4 mg regadenoson and 29.9 mCi of technetium-99m tetrofosmin for stress imaging. The electrocardiogram showed sinus rhythm with incomplete right bundle branch block. The electrocardiogram did not change significantly with the regadenoson infusion. Review of images at rest and following stress does not indicate any distinct perfusion defects consistent with myocardial ischemia or infarction. Some degree of diaphragmatic attenuation seen both at rest and following regadenoson infusion. Gated images show normal global left ventricular systolic function and normal regional wall motion, including the diaphragmatic wall of the left ventricle. Left ventricular ejection fraction is calculated to be 60%. CONCLUSIONS: 1. No evidence of any significant myocardial ischemia or infarction on this study. 2. Normal regional wall motion. 3. Normal global left ventricular systolic function with a calculated ejection fraction of 60%. Job ID: [id number] DocumentID: [id number] Dictated Date: 08/30/2023 15:22:43 Backing In Machine Tender Date: 08/30/2023 20:20:00 Dictated By: SPENCER MOHAMUD MD; ALESHA; FACP; FACC;
== END ==
LOC: CARD 07:05
PROVIDERS: ATTEND Nurse Practitioner Family
DX: I48.19 Other persistent atrial fibrillation (principal)
CPT/HCPCS: 78452; 93017; A9502